=== PATIENT | male | born 1955 | race Caucasian/White ===

== ENCOUNTER → 2023-01-17 | Outpatient (CLI) | payer MEDICARE, OTHER ==
[~2023-01-17] MED LIST: ALBU2.5V10 INH; ALBU8.5H INH; ERGO500029 PO; SODI3NEB INH
== END ==
LOC: M EKG 15:52
PROVIDERS: ATTEND Internal Medicine Hematology
DX: R91.8 Other nonspecific abnormal finding of lung field (principal)

== ENCOUNTER → 2023-01-21 | Outpatient (CLI) | payer OTHER ==
[~2023-01-21] MED LIST changes: -ALBU2.5V10 INH; +ALBU8.5H; -ALBU8.5H INH; +ERGO500029; -ERGO500029 PO; -SODI3NEB INH
== END ==
LOC: M LABSMTC 10:51
PROVIDERS: ATTEND Anesthesiology
DX: Z01.818 Encounter for other preprocedural examination (principal); Z11.52 Encounter for screening for COVID-19

== ENCOUNTER 2023-01-23 07:35 | Inpatient (IN) | payer OTHER ==
[~2023-01-23] VITALS: Ht 167.6 cm; Wt 82.6 kg
[2023-01-23] VITALS (24 sets, daily range): BP systolic 91–138; BP diastolic 50–72
[~2023-01-23 07:35] MED LIST changes: -ALBU8.5H; +ALBU8.5H INH; +CETACAINE SPRAY 5GM As Ordered ONE; +EPINEPHrine 1MG/10ML SYRINGE 1.5IN As Ordered ONE; -ERGO500029; +ERGO500029 PO; +THROMBIN 5,000 UNITS VIAL As Ordered ONE
[2023-01-23] MEDS ORDERED: ALBU2.5V10 INH (08:26)
[2023-01-23] MEDS ORDERED: ROCURONIUM BROMIDE 50MG/5ML VIAL As Ordered ONE ×2 (08:36→11:34)
[2023-01-23] MEDS ORDERED: LIDOCAINE 2% 100MG/5ML SDV (FOR ANES.) As Ordered ONE (08:36)
[2023-01-23] MEDS ORDERED: propofoL 200 MG/20 ML VIAL As Ordered ONE ×2 (08:36→11:35)
[2023-01-23] MEDS ORDERED: SUGAMMADEX SODIUM 500 MG/5 ML VIAL (BRIDION) As Ordered ONE (08:36)
[2023-01-23] MEDS ORDERED: ONDANSETRON 4MG 2ML VIAL As Ordered ONE (08:37)
[2023-01-23] MEDS ORDERED: LR 1,000 ML IV SCH ×2 (08:50→11:05)
[2023-01-23] MEDS ORDERED: fentaNYL 100 MCG/2 ML INJECTION As Ordered ONE ×2 (09:03→11:40)
[2023-01-23] MEDS ORDERED: LIDOCAINE PRES-FREE 2% 10ML AMP INH ONE (09:15)
[2023-01-23] MEDS ORDERED: ALBUTEROL SULFATE 2.5MG/0.5ML INH NEB SOLN INH ONE (09:15)
[2023-01-23] MEDS ORDERED: ACETAMINOPHEN 1000MG 100ML IV BAG As Ordered ONE (10:25)
[2023-01-23] MEDS ORDERED: fentaNYL 100 MCG/2 ML INJECTION IV PRN (11:05)
[2023-01-23] MEDS ORDERED: HYDROMORPHONE HCL 0.5 MG/ 0.5 ML SYRINGE IV PRN (11:05)
[2023-01-23] MEDS ORDERED: ONDANSETRON 4MG 2ML VIAL IV PRN (11:05)
[2023-01-23] MEDS ORDERED: oxyCODONE 5MG TAB PO PRN (11:05)
[2023-01-23] MEDS ORDERED: NALOXONE INJ 0.4MG/1ML VIAL As Ordered ONE (11:13)
[2023-01-23] MEDS ORDERED: PHENYLEPHRINE 10MG/ML 1ML VIAL As Ordered ONE (12:11)
[2023-01-23] MEDS: fentaNYL 100 MCG/2 ML INJECTION IV PRN ×10 (12:12→23:31)
[2023-01-23] MEDS: MIDAZOLAM INJ 2MG/2ML VIAL IV PRN ×10 (12:12→23:30)
[2023-01-23] MEDS ORDERED: MIDAZOLAM INJ 2MG/2ML VIAL As Ordered ONE ×2 (12:13→12:16)
[2023-01-23] MEDS ORDERED: methylPREDNISolone 125MG 2ML VIAL As Ordered ONE (12:14)
[2023-01-23] MEDS ORDERED: methylPREDNISolone 125MG 2ML VIAL IV ONE (12:20)
[2023-01-23] MEDS ORDERED: VANCOMYCIN HCL 1,000 MG, VIAL MATE ADAPTER 1 EACH in NS 250 ML IV SCH (13:05)
[2023-01-23] MEDS: MIDAZOLAM 100MG/100ML-0.9%NACL 100 MG in IV 1 EA IV SCH (13:23)
[2023-01-23] MEDS ORDERED: VANCOMYCIN HCL 750 MG, VIAL MATE ADAPTER 1 EACH in D5W 250 ML IV ONE ×7 (14:00→15:00)
[2023-01-23] MEDS ORDERED: VANCOMYCIN HCL 500 MG in D5W MINI-BAG PLUS 100 ML IV ONE (14:00)
[2023-01-23] MEDS ORDERED: PIPERACILLIN/TAZOBACTAM SOD 3.375 GM in D5W MINI-BAG PLUS 50 ML IV SCH (14:00)
[2023-01-23 14:14] LABS: ABG HCO3 28.9 MEQ/L (22.0-26.0); ABG O2 SATURATION 98.8 % (95.0-99.0); ABG PARTIAL PRESSURE CO2 57.6 mmHg (35.0-45.0); ABG PARTIAL PRESSURE O2 157.7 mmHg (75.0-100.0); ABG STANDARD HCO3 26.3 MEQ/L (22.0-26.0); ABG TOTAL CO2 30.6 MEQ/L (23.0-31.0); ABG pH (ARTERIAL) 7.318 UNITS (7.350-7.450)
[2023-01-23] MEDS: PIPERACILLIN/TAZOBACTAM SOD 4.5 GM in D5W MINI-BAG PLUS 50 ML IV SCH ×2 (14:28→20:03)
[2023-01-23] MEDS: PANTOPRAZOLE 40MG VIAL IV SCH (14:34)
[2023-01-23 14:52] LABS: HEMATOCRIT 30.1 % (42.0-52.0); HEMOGLOBIN 9.2 g/dl (13.5-17.5); MEAN CORPUSCULAR HEMOGLOBIN 28.8 pg (27.0-33.0); MEAN CORPUSCULAR HGB CONC 30.6 g/dl (32.0-36.5); MEAN CORPUSCULAR VOLUME 94.4 fl (80.0-96.0); PLATELET COUNT, AUTOMATED 563 10^3/uL (150-450); RED BLOOD COUNT 3.19 10^6/uL (4.30-6.10); WHITE BLOOD COUNT 15.3 10^3/uL (4.0-10.0)
[2023-01-23 15:10] LABS: ANISOCYTOSIS 1+; LYMPHOCYTES 3 % (16-44); MONOCYTES 3 % (0-5); NEUTROPHILS 94 % (28-66); PLATELET ESTIMATE INCREASED (NORMAL); POLYCHROMASIA 1+
[2023-01-23 15:15] LABS: ALBUMIN 1.6 G/DL (3.2-5.2); ALKALINE PHOSPHATASE 211 U/L (46-116); ALT/SGPT 38 U/L (7.0-40); AST/SGOT 34 U/L (<34); BILIRUBIN,TOTAL 0.8 MG/DL (0.3-1.2); BLOOD UREA NITROGEN 15 MG/DL (9-23); CALCIUM LEVEL 8.3 MG/DL (8.3-10.6); CARBON DIOXIDE LEVEL 29 MMOL/L (20-31); CHLORIDE LEVEL 98 MMOL/L (98-107); GLOMERULAR FILTRATION RATE > 60.0 (>49); GLUCOSE, FASTING 133 MG/DL (74-106); MAGNESIUM LEVEL 1.9 MG/DL (1.8-2.4); POTASSIUM SERUM 4.5 MMOL/L (3.5-5.1); SODIUM LEVEL 135 MMOL/L (136-145)
[2023-01-23] MEDS: IPRATROPIUM 0.5MG/ALBUTEROL 2.5MG INH SOL UD 3ML (DUONEB) NEB SCH ×2 (15:20→19:20)
[2023-01-23] MEDS ORDERED: PIPERACILLIN/TAZOBACTAM SOD 4.5 GM in D5W MINI-BAG PLUS 50 ML IV SCH (16:00)
[2023-01-23] MEDS ORDERED: LIDOCAINE 1% MDV 20ML VIAL As Ordered ONE (16:28)
[2023-01-23] MEDS ORDERED: SODI3NEB INH (17:13)
[2023-01-23] MEDS ORDERED: HOME MED LIST COMPLETE! XX SCH (17:15)
[2023-01-23] MEDS: NS 1,000 ML IV SCH (18:29)
[2023-01-23] MEDS: methylPREDNISolone 125MG 2ML VIAL IV SCH (18:29)
[2023-01-23] MEDS: ACETYLCYSTEINE 20% 4 ML VIAL (200MG/ML) INH SCH (19:20)
[2023-01-23] MEDS: CHLORHEXIDINE GLUCONATE 0.12 % 15ML UDC (PERIDEX ORAL RINSE) MT SCH (22:12)
[2023-01-23] MEDS ORDERED: VANCOMYCIN HCL 750 MG, VIAL MATE ADAPTER 1 EACH in D5W 250 ML IV SCH (23:00)
[2023-01-24] VITALS (34 sets, daily range): BP systolic 92–168; BP diastolic 50–90
[2023-01-24] MEDS: methylPREDNISolone 125MG 2ML VIAL IV SCH ×4 (00:32→17:37)
[2023-01-24] MEDS: PIPERACILLIN/TAZOBACTAM SOD 4.5 GM in D5W MINI-BAG PLUS 50 ML IV SCH ×4 (01:33→20:28)
[2023-01-24] MEDS: ACETYLCYSTEINE 20% 4 ML VIAL (200MG/ML) INH SCH ×2 (02:00→08:51)
[2023-01-24] MEDS: MIDAZOLAM 100MG/100ML-0.9%NACL 100 MG in IV 1 EA IV SCH ×2 (02:37→20:14)
[2023-01-24 04:45] LABS: HEMATOCRIT 27.2 % (42.0-52.0); HEMOGLOBIN 8.3 g/dl (13.5-17.5); MEAN CORPUSCULAR HEMOGLOBIN 28.5 pg (27.0-33.0); MEAN CORPUSCULAR HGB CONC 30.5 g/dl (32.0-36.5); MEAN CORPUSCULAR VOLUME 93.5 fl (80.0-96.0); PLATELET COUNT, AUTOMATED 526 10^3/uL (150-450); RED BLOOD COUNT 2.91 10^6/uL (4.30-6.10); WHITE BLOOD COUNT 12.9 10^3/uL (4.0-10.0)
[2023-01-24] MEDS: MIDAZOLAM INJ 2MG/2ML VIAL IV PRN ×8 (04:46→11:17)
[2023-01-24] MEDS: fentaNYL 100 MCG/2 ML INJECTION IV PRN ×5 (04:52→10:54)
[2023-01-24 05:04] LABS: ALBUMIN 1.4 G/DL (3.2-5.2); ALKALINE PHOSPHATASE 173 U/L (46-116); ALT/SGPT 29 U/L (7.0-40); AST/SGOT 18 U/L (<34); BILIRUBIN,TOTAL 0.6 MG/DL (0.3-1.2); BLOOD UREA NITROGEN 21 MG/DL (9-23); CALCIUM LEVEL 8.2 MG/DL (8.3-10.6); CARBON DIOXIDE LEVEL 30 MMOL/L (20-31); CHLORIDE LEVEL 102 MMOL/L (98-107); CREATININE FOR GFR 0.85 MG/DL (0.70-1.30); GLOMERULAR FILTRATION RATE > 60.0 (>49); GLUCOSE, FASTING 153 MG/DL (74-106); POTASSIUM SERUM 4.6 MMOL/L (3.5-5.1); SODIUM LEVEL 139 MMOL/L (136-145); TOTAL PROTEIN 6.5 G/DL (5.7-8.2)
[2023-01-24] MEDS: NS 1,000 ML IV SCH (05:18)
[2023-01-24 05:52] LABS: ABG BASE EXCESS 3.4 (-2.0-2.0); ABG HCO3 29.5 MEQ/L (22.0-26.0); ABG O2 SATURATION 94.7 % (95.0-99.0); ABG PARTIAL PRESSURE CO2 52.5 mmHg (35.0-45.0); ABG STANDARD HCO3 27.5 MEQ/L (22.0-26.0); ABG TOTAL CO2 31.1 MEQ/L (23.0-31.0); ABG pH (ARTERIAL) 7.367 UNITS (7.350-7.450)
[2023-01-24] MEDS: IPRATROPIUM 0.5MG/ALBUTEROL 2.5MG INH SOL UD 3ML (DUONEB) NEB SCH ×4 (07:20→20:36)
[2023-01-24] MEDS: CHLORHEXIDINE GLUCONATE 0.12 % 15ML UDC (PERIDEX ORAL RINSE) MT SCH ×2 (08:17→22:23)
[2023-01-24 10:19] LABS: INR 1.38; PARTIAL THROMBOPLASTIN TIME 31.6 SECONDS (24.8-34.2); PROTHROMBIN TIME 17.2 SECONDS (12.5-14.5)
[2023-01-24] MEDS: dexmedeTOMidine 200 MCG in IV 1 EA IV SCH ×3 (10:20→20:24)
[2023-01-24 10:21] LABS: VANCOMYCIN LEVEL TROUGH 15.3 UG/ML (10.0-20.0)
[2023-01-24] MEDS ORDERED: LIDOCAINE 1% MDV 20ML VIAL As Ordered ONE ×2 (10:29→10:53)
[2023-01-24] MEDS ORDERED: LIDOCAINE 1% MDV 20ML VIAL SC ONE ×2 (10:37→10:55)
[2023-01-24 10:38] LABS: BLOOD UREA NITROGEN 23 MG/DL (9-23); CALCIUM LEVEL 8.3 MG/DL (8.3-10.6); CARBON DIOXIDE LEVEL 28 MMOL/L (20-31); CHLORIDE LEVEL 104 MMOL/L (98-107); CREATININE FOR GFR 0.86 MG/DL (0.70-1.30); GLOMERULAR FILTRATION RATE > 60.0 (>49); GLUCOSE, FASTING 173 MG/DL (74-106); POTASSIUM SERUM 4.2 MMOL/L (3.5-5.1); SODIUM LEVEL 140 MMOL/L (136-145)
[2023-01-24] MEDS ORDERED: VANCOMYCIN HCL 500 MG in D5W MINI-BAG PLUS 100 ML IV SCH ×4 (11:00→11:05)
[2023-01-24] MEDS ORDERED: FENTANYL DRIP LOCK BOX KEY 1 EACH XX PRN (11:45)
[2023-01-24 11:57] LABS: LDH LACTATE DEHYDROGENASE 137 U/L (120-246)
[2023-01-24] MEDS ORDERED: VANCOMYCIN HCL 500 MG in D5W MINI-BAG PLUS 100 ML IV ONE (12:00)
[2023-01-24] MEDS: fentaNYL CITRATE/NaCl 1,000 MCG in IV 1 EA IV SCH (12:19)
[2023-01-24 12:25] LABS: APPEARANCE, BODY FLUID TURBID (CLEAR); PLEURAL FL COLOR GREEN (COLORLESS); SOURCE, BODY FLUID PLEURAL
[2023-01-24 12:31] LABS: SOURCE, BODY FLUID GLUCOSE PLEURAL
[2023-01-24] MEDS: THIAMINE 100 MG TAB PO SCH (12:31)
[2023-01-24] MEDS: ENOXAPARIN 40MG/0.4ML SYRINGE (J1650 PER 10MG) SC SCH (12:31)
[2023-01-24] MEDS: FOLIC ACID 1MG TAB PO SCH (12:31)
[2023-01-24] MEDS: MULTIVITAMINS/MINERALS THERAP 1 TAB PO SCH (12:31)
[2023-01-24 12:32] LABS: SOURCE, BODY FLUID TRIG PLEURAL; TRIGLYCERIDE, BODY FLUID 25 MG/DL (NOT ESTABLISHED)
[2023-01-24 12:33] LABS: AMYLASE, BODY FLUID < 20 U/L (NOT ESTABLISHED); CHOLESTEROL, BODY FLUID < 25 MG/DL (NOT ESTABLISHED); SOURCE, BODY FLUID AMYLASE PLEURAL; SOURCE, BODY FLUID CHOL PLEURAL
[2023-01-24 12:43] LABS: LDH, BODY FLUID > 700 U/L (NOT ESTABLISHED); SOURCE, BODY FLUID LDH PLEURAL
[2023-01-24 14:23] LABS: SOURCE, BODY FLUID pH PLEURAL
[2023-01-24] MEDS: PANTOPRAZOLE 40MG VIAL IV SCH (14:42)
[2023-01-24 15:59] LABS: BLOOD UREA NITROGEN 22 MG/DL (9-23); CALCIUM LEVEL 8.5 MG/DL (8.3-10.6); CARBON DIOXIDE LEVEL 31 MMOL/L (20-31); CHLORIDE LEVEL 106 MMOL/L (98-107); CREATININE FOR GFR 0.76 MG/DL (0.70-1.30); GLOMERULAR FILTRATION RATE > 60.0 (>49); GLUCOSE, FASTING 170 MG/DL (74-106); POTASSIUM SERUM 4.2 MMOL/L (3.5-5.1); SODIUM LEVEL 141 MMOL/L (136-145)
[2023-01-24 23:02] LABS: BLOOD UREA NITROGEN 22 MG/DL (9-23); CALCIUM LEVEL 8.3 MG/DL (8.3-10.6); CARBON DIOXIDE LEVEL 32 MMOL/L (20-31); CHLORIDE LEVEL 107 MMOL/L (98-107); CREATININE FOR GFR 0.75 MG/DL (0.70-1.30); GLOMERULAR FILTRATION RATE > 60.0 (>49); GLUCOSE, FASTING 167 MG/DL (74-106); POTASSIUM SERUM 4.1 MMOL/L (3.5-5.1); SODIUM LEVEL 142 MMOL/L (136-145)
[2023-01-25] VITALS (26 sets, daily range): BP systolic 118–177; BP diastolic 60–86
[2023-01-25] MEDS: VANCOMYCIN HCL 1,000 MG, VIAL MATE ADAPTER 1 EACH in D5W 250 ML IV SCH ×3 (00:21→23:45)
[2023-01-25] MEDS: methylPREDNISolone 125MG 2ML VIAL IV SCH ×2 (00:22→06:28)
[2023-01-25] MEDS ORDERED: NS 1,000 ML IV SCH (01:05)
[2023-01-25 01:12] LABS: SOURCE, BODY FLUID ALBUMIN PLEURAL
[2023-01-25 01:19] LABS: SOURCE, BODY FLUID TOT PROTEIN PLEURAL; TOTAL PROTEIN, BODY FLUID 2.4 G/DL (NOT ESTABLISHED)
[2023-01-25] MEDS: PIPERACILLIN/TAZOBACTAM SOD 4.5 GM in D5W MINI-BAG PLUS 50 ML IV SCH ×4 (01:43→20:07)
[2023-01-25] MEDS: dexmedeTOMidine 200 MCG in IV 1 EA IV SCH ×7 (01:44→23:45)
[2023-01-25 04:10] LABS: HEMATOCRIT 26.3 % (42.0-52.0); MEAN CORPUSCULAR HEMOGLOBIN 28.8 pg (27.0-33.0); MEAN CORPUSCULAR HGB CONC 30.4 g/dl (32.0-36.5); MEAN CORPUSCULAR VOLUME 94.6 fl (80.0-96.0); PLATELET COUNT, AUTOMATED 488 10^3/uL (150-450); RED BLOOD COUNT 2.78 10^6/uL (4.30-6.10); WHITE BLOOD COUNT 12.5 10^3/uL (4.0-10.0)
[2023-01-25 04:26] LABS: BLOOD UREA NITROGEN 23 MG/DL (9-23); CALCIUM LEVEL 8.5 MG/DL (8.3-10.6); CARBON DIOXIDE LEVEL 32 MMOL/L (20-31); CHLORIDE LEVEL 107 MMOL/L (98-107); CREATININE FOR GFR 0.89 MG/DL (0.70-1.30); GLOMERULAR FILTRATION RATE > 60.0 (>49); GLUCOSE, FASTING 139 MG/DL (74-106); POTASSIUM SERUM 4.5 MMOL/L (3.5-5.1); SODIUM LEVEL 145 MMOL/L (136-145)
[2023-01-25] MEDS: fentaNYL CITRATE/NaCl 1,000 MCG in IV 1 EA IV SCH ×2 (04:40→21:21)
[2023-01-25] MEDS: fentaNYL 100 MCG/2 ML INJECTION IV PRN (05:23)
[2023-01-25 05:46] LABS: ABG BASE EXCESS 5.7 (-2.0-2.0); ABG O2 SATURATION 97.5 % (95.0-99.0); ABG PARTIAL PRESSURE CO2 49.3 mmHg (35.0-45.0); ABG PARTIAL PRESSURE O2 104.4 mmHg (75.0-100.0); ABG STANDARD HCO3 29.7 MEQ/L (22.0-26.0); ABG TOTAL CO2 32.6 MEQ/L (23.0-31.0); ABG pH (ARTERIAL) 7.417 UNITS (7.350-7.450)
[2023-01-25] MEDS: FOLIC ACID 1MG TAB PO SCH (08:08)
[2023-01-25] MEDS: ENOXAPARIN 40MG/0.4ML SYRINGE (J1650 PER 10MG) SC SCH (08:08)
[2023-01-25] MEDS: MULTIVITAMINS/MINERALS THERAP 1 TAB PO SCH (08:09)
[2023-01-25] MEDS: THIAMINE 100 MG TAB PO SCH (08:09)
[2023-01-25] MEDS: IPRATROPIUM 0.5MG/ALBUTEROL 2.5MG INH SOL UD 3ML (DUONEB) NEB SCH ×4 (08:14→19:26)
[2023-01-25] MEDS: CHLORHEXIDINE GLUCONATE 0.12 % 15ML UDC (PERIDEX ORAL RINSE) MT SCH ×2 (09:03→20:06)
[2023-01-25] MEDS ORDERED: MIDAZOLAM INJ 2MG/2ML VIAL As Ordered ONE ×2 (09:05→09:06)
[2023-01-25] MEDS ORDERED: MIDAZOLAM INJ 2MG/2ML VIAL IV ONE (09:30)
[2023-01-25 11:27] LABS: BLOOD UREA NITROGEN 25 MG/DL (9-23); CALCIUM LEVEL 8.4 MG/DL (8.3-10.6); CARBON DIOXIDE LEVEL 31 MMOL/L (20-31); CHLORIDE LEVEL 107 MMOL/L (98-107); CREATININE FOR GFR 0.78 MG/DL (0.70-1.30); GLOMERULAR FILTRATION RATE > 60.0 (>49); GLUCOSE, FASTING 133 MG/DL (74-106); POTASSIUM SERUM 4.4 MMOL/L (3.5-5.1); SODIUM LEVEL 142 MMOL/L (136-145)
[2023-01-25] MEDS: MIDAZOLAM 100MG/100ML-0.9%NACL 100 MG in IV 1 EA IV SCH (11:42)
[2023-01-25] MEDS: PANTOPRAZOLE 40MG VIAL IV SCH (14:07)
[2023-01-25] MEDS: methylPREDNISolone 40MG 1ML VIAL IV SCH (17:05)
[2023-01-25 17:12] LABS: BLOOD UREA NITROGEN 26 MG/DL (9-23); CALCIUM LEVEL 8.5 MG/DL (8.3-10.6); CARBON DIOXIDE LEVEL 31 MMOL/L (20-31); CHLORIDE LEVEL 108 MMOL/L (98-107); CREATININE FOR GFR 0.78 MG/DL (0.70-1.30); GLOMERULAR FILTRATION RATE > 60.0 (>49); GLUCOSE, FASTING 135 MG/DL (74-106); POTASSIUM SERUM 4.3 MMOL/L (3.5-5.1); SODIUM LEVEL 145 MMOL/L (136-145)
[2023-01-25 22:43] LABS: BLOOD UREA NITROGEN 26 MG/DL (9-23); CALCIUM LEVEL 8.2 MG/DL (8.3-10.6); CARBON DIOXIDE LEVEL 32 MMOL/L (20-31); CHLORIDE LEVEL 107 MMOL/L (98-107); CREATININE FOR GFR 0.72 MG/DL (0.70-1.30); GLOMERULAR FILTRATION RATE > 60.0 (>49); GLUCOSE, FASTING 157 MG/DL (74-106); POTASSIUM SERUM 3.9 MMOL/L (3.5-5.1); SODIUM LEVEL 145 MMOL/L (136-145)
[2023-01-25] MEDS: MIDAZOLAM INJ 2MG/2ML VIAL IV PRN (22:53)
[2023-01-26] VITALS (41 sets, daily range): BP systolic 153–195; BP diastolic 71–96
[2023-01-26] MEDS: PIPERACILLIN/TAZOBACTAM SOD 4.5 GM in D5W MINI-BAG PLUS 50 ML IV SCH ×4 (01:18→20:25)
[2023-01-26] MEDS: dexmedeTOMidine 200 MCG in IV 1 EA IV SCH ×8 (02:58→23:30)
[2023-01-26] MEDS: MIDAZOLAM INJ 2MG/2ML VIAL IV PRN ×4 (03:40→23:56)
[2023-01-26] MEDS: fentaNYL 100 MCG/2 ML INJECTION IV PRN (03:41)
[2023-01-26] MEDS: MIDAZOLAM 100MG/100ML-0.9%NACL 100 MG in IV 1 EA IV SCH ×2 (04:11→21:02)
[2023-01-26 05:36] LABS: HEMOGLOBIN 8.5 g/dl (13.5-17.5); MEAN CORPUSCULAR HEMOGLOBIN 28.5 pg (27.0-33.0); MEAN CORPUSCULAR HGB CONC 30.4 g/dl (32.0-36.5); PLATELET COUNT, AUTOMATED 466 10^3/uL (150-450); RED BLOOD COUNT 2.98 10^6/uL (4.30-6.10); WHITE BLOOD COUNT 12.3 10^3/uL (4.0-10.0)
[2023-01-26 05:51] LABS: BLOOD UREA NITROGEN 27 MG/DL (9-23); CALCIUM LEVEL 8.3 MG/DL (8.3-10.6); CARBON DIOXIDE LEVEL 33 MMOL/L (20-31); CHLORIDE LEVEL 105 MMOL/L (98-107); CREATININE FOR GFR 0.72 MG/DL (0.70-1.30); GLOMERULAR FILTRATION RATE > 60.0 (>49); GLUCOSE, FASTING 126 MG/DL (74-106); POTASSIUM SERUM 4.4 MMOL/L (3.5-5.1); SODIUM LEVEL 142 MMOL/L (136-145)
[2023-01-26] MEDS: methylPREDNISolone 40MG 1ML VIAL IV SCH ×2 (05:57→17:04)
[2023-01-26 06:14] LABS: ABG HCO3 32.8 MEQ/L (22.0-26.0); ABG O2 SATURATION 98.1 % (95.0-99.0); ABG PARTIAL PRESSURE CO2 47.4 mmHg (35.0-45.0); ABG STANDARD HCO3 31.8 MEQ/L (22.0-26.0); ABG TOTAL CO2 34.3 MEQ/L (23.0-31.0); ABG pH (ARTERIAL) 7.458 UNITS (7.350-7.450)
[2023-01-26] MEDS: IPRATROPIUM 0.5MG/ALBUTEROL 2.5MG INH SOL UD 3ML (DUONEB) NEB SCH ×4 (07:54→19:33)
[2023-01-26] MEDS: CHLORHEXIDINE GLUCONATE 0.12 % 15ML UDC (PERIDEX ORAL RINSE) MT SCH ×2 (08:19→20:25)
[2023-01-26] MEDS: MULTIVITAMINS/MINERALS THERAP 1 TAB PO SCH (08:19)
[2023-01-26] MEDS: FOLIC ACID 1MG TAB PO SCH (08:19)
[2023-01-26] MEDS: ENOXAPARIN 40MG/0.4ML SYRINGE (J1650 PER 10MG) SC SCH (08:20)
[2023-01-26] MEDS ORDERED: PILL CUTTER 1 EACH XX PRN (08:20)
[2023-01-26] MEDS ORDERED: METOPROLOL SUCC *XL* 25MG TAB (TopROL *XL*) PO SCH (09:00)
[2023-01-26] MEDS: THIAMINE 100 MG TAB PO SCH (09:47)
[2023-01-26] MEDS ORDERED: VECURONIUM BROMIDE 10MG VIAL IV STA (09:49)
[2023-01-26] MEDS ORDERED: METOPROLOL 5 MG/5 ML VIAL IV STA (10:04)
[2023-01-26] MEDS ORDERED: ALTEPLASE 2MG/2ML VIAL XX ONE (11:00)
[2023-01-26] MEDS: METOCLOPRAMIDE 5 MG TAB PO SCH ×2 (11:43→20:25)
[2023-01-26] MEDS: VANCOMYCIN HCL 1,000 MG, VIAL MATE ADAPTER 1 EACH in D5W 250 ML IV SCH ×2 (11:43→23:31)
[2023-01-26] MEDS: METOPROLOL TART 25 MG TABLET PO SCH ×2 (12:18→20:25)
[2023-01-26] MEDS: PANTOPRAZOLE 40MG VIAL IV SCH (13:22)
[2023-01-26] MEDS: fentaNYL CITRATE/NaCl 1,000 MCG in IV 1 EA IV SCH (14:07)
[2023-01-26] MEDS: hydrALAZINE 20MG/ML 1ML VIAL IV SCH ×2 (14:09→22:03)
[2023-01-27] VITALS (47 sets, daily range): BP systolic 124–186; BP diastolic 58–84
[2023-01-27] MEDS: PIPERACILLIN/TAZOBACTAM SOD 4.5 GM in D5W MINI-BAG PLUS 50 ML IV SCH ×4 (01:38→20:11)
[2023-01-27] MEDS: MIDAZOLAM INJ 2MG/2ML VIAL IV PRN ×3 (02:18→20:16)
[2023-01-27] MEDS: dexmedeTOMidine 200 MCG in IV 1 EA IV SCH ×8 (02:28→23:30)
[2023-01-27] MEDS: fentaNYL CITRATE/NaCl 1,000 MCG in IV 1 EA IV SCH ×2 (03:54→16:29)
[2023-01-27 05:01] LABS: HEMATOCRIT 28.9 % (42.0-52.0); MEAN CORPUSCULAR HEMOGLOBIN 28.7 pg (27.0-33.0); MEAN CORPUSCULAR HGB CONC 31.1 g/dl (32.0-36.5); PLATELET COUNT, AUTOMATED 421 10^3/uL (150-450); RED BLOOD COUNT 3.14 10^6/uL (4.30-6.10); WHITE BLOOD COUNT 8.7 10^3/uL (4.0-10.0)
[2023-01-27 05:25] LABS: BLOOD UREA NITROGEN 21 MG/DL (9-23); CALCIUM LEVEL 8.3 MG/DL (8.3-10.6); CARBON DIOXIDE LEVEL 33 MMOL/L (20-31); CHLORIDE LEVEL 100 MMOL/L (98-107); CREATININE FOR GFR 0.59 MG/DL (0.70-1.30); GLOMERULAR FILTRATION RATE > 60.0 (>49); GLUCOSE, FASTING 137 MG/DL (74-106); SODIUM LEVEL 135 MMOL/L (136-145)
[2023-01-27] MEDS: methylPREDNISolone 40MG 1ML VIAL IV SCH ×2 (06:05→17:10)
[2023-01-27] MEDS: hydrALAZINE 20MG/ML 1ML VIAL IV SCH ×3 (06:05→22:07)
[2023-01-27 06:10] LABS: ABG BASE EXCESS 9.9 (-2.0-2.0); ABG HCO3 34.7 MEQ/L (22.0-26.0); ABG O2 SATURATION 97.4 % (95.0-99.0); ABG PARTIAL PRESSURE CO2 48.6 mmHg (35.0-45.0); ABG PARTIAL PRESSURE O2 99.3 mmHg (75.0-100.0); ABG STANDARD HCO3 33.6 MEQ/L (22.0-26.0); ABG TOTAL CO2 36.2 MEQ/L (23.0-31.0); ABG pH (ARTERIAL) 7.472 UNITS (7.350-7.450)
[2023-01-27] MEDS: IPRATROPIUM 0.5MG/ALBUTEROL 2.5MG INH SOL UD 3ML (DUONEB) NEB SCH ×4 (07:45→20:04)
[2023-01-27] MEDS: FOLIC ACID 1MG TAB PO SCH (08:51)
[2023-01-27] MEDS: MULTIVITAMINS/MINERALS THERAP 1 TAB PO SCH (08:51)
[2023-01-27] MEDS: METOCLOPRAMIDE 5 MG TAB PO SCH ×2 (08:52→20:11)
[2023-01-27] MEDS: METOPROLOL TART 25 MG TABLET PO SCH ×2 (08:52→20:00)
[2023-01-27] MEDS: CHLORHEXIDINE GLUCONATE 0.12 % 15ML UDC (PERIDEX ORAL RINSE) MT SCH ×2 (08:53→20:11)
[2023-01-27] MEDS: ENOXAPARIN 40MG/0.4ML SYRINGE (J1650 PER 10MG) SC SCH (08:53)
[2023-01-27] MEDS: THIAMINE 100 MG TAB PO SCH (08:53)
[2023-01-27] MEDS: PANTOPRAZOLE 40MG VIAL IV SCH (13:37)
[2023-01-27] MEDS: MIDAZOLAM 100MG/100ML-0.9%NACL 100 MG in IV 1 EA IV SCH (13:53)
[2023-01-28] VITALS (29 sets, daily range): BP systolic 109–193; BP diastolic 56–135; O2SAT 91
[2023-01-28] MEDS: PIPERACILLIN/TAZOBACTAM SOD 4.5 GM in D5W MINI-BAG PLUS 50 ML IV SCH ×4 (01:57→20:00)
[2023-01-28] MEDS: dexmedeTOMidine 200 MCG in IV 1 EA IV SCH ×2 (02:42→06:02)
[2023-01-28] MEDS: MIDAZOLAM INJ 2MG/2ML VIAL IV PRN ×2 (02:46→03:12)
[2023-01-28] MEDS: MIDAZOLAM 100MG/100ML-0.9%NACL 100 MG in IV 1 EA IV SCH (03:13)
[2023-01-28] MEDS: fentaNYL CITRATE/NaCl 1,000 MCG in IV 1 EA IV SCH (05:03)
[2023-01-28 05:08] LABS: HEMATOCRIT 30.6 % (42.0-52.0); HEMOGLOBIN 9.7 g/dl (13.5-17.5); MEAN CORPUSCULAR HGB CONC 31.7 g/dl (32.0-36.5); MEAN CORPUSCULAR VOLUME 91.6 fl (80.0-96.0); PLATELET COUNT, AUTOMATED 420 10^3/uL (150-450); RED BLOOD COUNT 3.34 10^6/uL (4.30-6.10); WHITE BLOOD COUNT 7.7 10^3/uL (4.0-10.0)
[2023-01-28 05:36] LABS: BLOOD UREA NITROGEN 23 MG/DL (9-23); CALCIUM LEVEL 7.9 MG/DL (8.3-10.6); CARBON DIOXIDE LEVEL 33 MMOL/L (20-31); CHLORIDE LEVEL 101 MMOL/L (98-107); CREATININE FOR GFR 0.56 MG/DL (0.70-1.30); GLOMERULAR FILTRATION RATE > 60.0 (>49); GLUCOSE, FASTING 146 MG/DL (74-106); POTASSIUM SERUM 4.3 MMOL/L (3.5-5.1); SODIUM LEVEL 138 MMOL/L (136-145)
[2023-01-28] MEDS: hydrALAZINE 20MG/ML 1ML VIAL IV SCH ×3 (06:00→22:46)
[2023-01-28] MEDS: methylPREDNISolone 40MG 1ML VIAL IV SCH (06:02)
[2023-01-28 06:07] LABS: ABG BASE EXCESS 6.9 (-2.0-2.0); ABG HCO3 31.2 MEQ/L (22.0-26.0); ABG O2 SATURATION 95.6 % (95.0-99.0); ABG PARTIAL PRESSURE CO2 43.4 mmHg (35.0-45.0); ABG PARTIAL PRESSURE O2 81.1 mmHg (75.0-100.0); ABG STANDARD HCO3 30.7 MEQ/L (22.0-26.0); ABG TOTAL CO2 32.5 MEQ/L (23.0-31.0); ABG pH (ARTERIAL) 7.474 UNITS (7.350-7.450)
[2023-01-28] MEDS: IPRATROPIUM 0.5MG/ALBUTEROL 2.5MG INH SOL UD 3ML (DUONEB) NEB SCH ×4 (07:11→20:55)
[2023-01-28] MEDS: MULTIVITAMINS/MINERALS THERAP 1 TAB PO SCH (08:40)
[2023-01-28] MEDS: FOLIC ACID 1MG TAB PO SCH (08:40)
[2023-01-28] MEDS: CHLORHEXIDINE GLUCONATE 0.12 % 15ML UDC (PERIDEX ORAL RINSE) MT SCH (08:40)
[2023-01-28] MEDS: METOCLOPRAMIDE 5 MG TAB PO SCH (08:41)
[2023-01-28] MEDS: THIAMINE 100 MG TAB PO SCH (08:41)
[2023-01-28] MEDS: ENOXAPARIN 40MG/0.4ML SYRINGE (J1650 PER 10MG) SC SCH (08:43)
[2023-01-28] MEDS ORDERED: BISACODYL 10MG SUPP PR PRN (09:15)
[2023-01-28] MEDS: METOPROLOL TART 25 MG TABLET PO SCH ×2 (09:50→21:25)
[2023-01-28] MEDS: PANTOPRAZOLE 40MG VIAL IV SCH (13:41)
[2023-01-28] MEDS ORDERED: LORazepam 2 MG/ML 1ML VIAL IV PRN (15:40)
[2023-01-28] MEDS ORDERED: LORazepam 2 MG/ML 1ML VIAL IM PRN (16:35)
[2023-01-29] VITALS (14 sets, daily range): BP systolic 115–183; BP diastolic 52–102; O2SAT 91
[2023-01-29] MEDS: PIPERACILLIN/TAZOBACTAM SOD 4.5 GM in D5W MINI-BAG PLUS 50 ML IV SCH ×4 (02:13→20:38)
[2023-01-29 05:02] LABS: HEMATOCRIT 35.4 % (42.0-52.0); HEMOGLOBIN 11.3 g/dl (13.5-17.5); MEAN CORPUSCULAR HGB CONC 31.9 g/dl (32.0-36.5); MEAN CORPUSCULAR VOLUME 90.8 fl (80.0-96.0); PLATELET COUNT, AUTOMATED 497 10^3/uL (150-450); WHITE BLOOD COUNT 13.6 10^3/uL (4.0-10.0)
[2023-01-29 05:39] LABS: BLOOD UREA NITROGEN 19 MG/DL (9-23); CALCIUM LEVEL 7.8 MG/DL (8.3-10.6); CARBON DIOXIDE LEVEL 30 MMOL/L (20-31); CHLORIDE LEVEL 103 MMOL/L (98-107); CREATININE FOR GFR 0.55 MG/DL (0.70-1.30); GLOMERULAR FILTRATION RATE > 60.0 (>49); GLUCOSE, FASTING 75 MG/DL (74-106); POTASSIUM SERUM 3.3 MMOL/L (3.5-5.1); SODIUM LEVEL 136 MMOL/L (136-145)
[2023-01-29] MEDS ORDERED: methylPREDNISolone 40MG 1ML VIAL IV SCH (06:00)
[2023-01-29 06:11] LABS: ABG BASE EXCESS 6.9 (-2.0-2.0); ABG HCO3 30.7 MEQ/L (22.0-26.0); ABG O2 SATURATION 93.1 % (95.0-99.0); ABG PARTIAL PRESSURE CO2 40.5 mmHg (35.0-45.0); ABG PARTIAL PRESSURE O2 63.3 mmHg (75.0-100.0); ABG STANDARD HCO3 30.6 MEQ/L (22.0-26.0); ABG TOTAL CO2 31.9 MEQ/L (23.0-31.0); ABG pH (ARTERIAL) 7.497 UNITS (7.350-7.450)
[2023-01-29] MEDS: hydrALAZINE 20MG/ML 1ML VIAL IV SCH (06:29)
[2023-01-29] MEDS: IPRATROPIUM 0.5MG/ALBUTEROL 2.5MG INH SOL UD 3ML (DUONEB) NEB SCH ×4 (07:38→20:27)
[2023-01-29] MEDS ORDERED: POTASSIUM CHLORIDE 10MEQ SR TABLET PO ONE ×2 (08:15→12:30)
[2023-01-29] MEDS: MULTIVITAMINS/MINERALS THERAP 1 TAB PO SCH (08:26)
[2023-01-29] MEDS: METOPROLOL TART 25 MG TABLET PO SCH ×2 (08:27→20:38)
[2023-01-29] MEDS: THIAMINE 100 MG TAB PO SCH (08:28)
[2023-01-29] MEDS: FOLIC ACID 1MG TAB PO SCH (08:28)
[2023-01-29] MEDS: ENOXAPARIN 40MG/0.4ML SYRINGE (J1650 PER 10MG) SC SCH (08:28)
[2023-01-29] MEDS ORDERED: FUROSEMIDE 20MG/2ML VIAL IV ONE (12:25)
[2023-01-29] MEDS: predniSONE 10MG TAB PO SCH (12:38)
[2023-01-30] VITALS (12 sets, daily range): BP systolic 130–166; BP diastolic 64–80; O2SAT 93–95
[2023-01-30] MEDS: PIPERACILLIN/TAZOBACTAM SOD 4.5 GM in D5W MINI-BAG PLUS 50 ML IV SCH ×4 (02:13→20:31)
[2023-01-30 05:10] LABS: HEMOGLOBIN 10.4 g/dl (13.5-17.5); MEAN CORPUSCULAR HEMOGLOBIN 28.7 pg (27.0-33.0); MEAN CORPUSCULAR HGB CONC 31.5 g/dl (32.0-36.5); MEAN CORPUSCULAR VOLUME 90.9 fl (80.0-96.0); PLATELET COUNT, AUTOMATED 452 10^3/uL (150-450); RED BLOOD COUNT 3.63 10^6/uL (4.30-6.10); WHITE BLOOD COUNT 8.3 10^3/uL (4.0-10.0)
[2023-01-30 05:35] LABS: MAGNESIUM LEVEL 1.8 MG/DL (1.8-2.4); PHOSPHORUS LEVEL 2.8 MG/DL (2.4-5.1)
[2023-01-30 05:37] LABS: BLOOD UREA NITROGEN 22 MG/DL (9-23); CARBON DIOXIDE LEVEL 32 MMOL/L (20-31); CHLORIDE LEVEL 101 MMOL/L (98-107); CREATININE FOR GFR 0.55 MG/DL (0.70-1.30); GLOMERULAR FILTRATION RATE > 60.0 (>49); GLUCOSE, FASTING 91 MG/DL (74-106); POTASSIUM SERUM 3.6 MMOL/L (3.5-5.1); SODIUM LEVEL 138 MMOL/L (136-145)
[2023-01-30 05:52] LABS: HEPATITIS B SURFACE ANTIGEN NEGATIVE (NEGATIVE)
[2023-01-30 06:04] LABS: HIV 1&2 SCREEN CENTAUR NEGATIVE (NEGATIVE)
[2023-01-30 06:12] LABS: HEPATITIS C VIRUS ABY INDEX 0.2 INDEX (<0.8)
[2023-01-30] MEDS ORDERED: MAGNESIUM OXIDE 400MG TAB (MAG-OX) PO ONE (07:00)
[2023-01-30] MEDS ORDERED: POTASSIUM CHLORIDE 10MEQ SR TABLET PO ONE (07:00)
[2023-01-30] MEDS: IPRATROPIUM 0.5MG/ALBUTEROL 2.5MG INH SOL UD 3ML (DUONEB) NEB SCH ×4 (07:49→20:46)
[2023-01-30] MEDS: FOLIC ACID 1MG TAB PO SCH (08:10)
[2023-01-30] MEDS: METOPROLOL TART 25 MG TABLET PO SCH ×2 (08:10→20:30)
[2023-01-30] MEDS: MULTIVITAMINS/MINERALS THERAP 1 TAB PO SCH (08:10)
[2023-01-30] MEDS: predniSONE 10MG TAB PO SCH (08:10)
[2023-01-30] MEDS: THIAMINE 100 MG TAB PO SCH (08:11)
[2023-01-30] MEDS: VALSARTAN 80 MG TAB (DIOVAN) PO SCH (08:11)
[2023-01-30] MEDS: ENOXAPARIN 40MG/0.4ML SYRINGE (J1650 PER 10MG) SC SCH (08:12)
[2023-01-31] VITALS (31 sets, daily range): BP systolic 136–179; BP diastolic 65–77; O2SAT 85–97
[2023-01-31] MEDS: PIPERACILLIN/TAZOBACTAM SOD 4.5 GM in D5W MINI-BAG PLUS 50 ML IV SCH ×4 (02:04→20:07)
[2023-01-31 06:10] LABS: HEMATOCRIT 31.4 % (42.0-52.0); MEAN CORPUSCULAR HEMOGLOBIN 29.3 pg (27.0-33.0); MEAN CORPUSCULAR HGB CONC 31.8 g/dl (32.0-36.5); MEAN CORPUSCULAR VOLUME 92.1 fl (80.0-96.0); PLATELET COUNT, AUTOMATED 456 10^3/uL (150-450); RED BLOOD COUNT 3.41 10^6/uL (4.30-6.10); WHITE BLOOD COUNT 10.1 10^3/uL (4.0-10.0)
[2023-01-31 06:33] LABS: BLOOD UREA NITROGEN 18 MG/DL (9-23); CALCIUM LEVEL 8.1 MG/DL (8.3-10.6); CARBON DIOXIDE LEVEL 29 MMOL/L (20-31); CHLORIDE LEVEL 104 MMOL/L (98-107); CREATININE FOR GFR 0.63 MG/DL (0.70-1.30); GLOMERULAR FILTRATION RATE > 60.0 (>49); GLUCOSE, FASTING 72 MG/DL (74-106); POTASSIUM SERUM 3.8 MMOL/L (3.5-5.1); SODIUM LEVEL 139 MMOL/L (136-145)
[2023-01-31] MEDS: IPRATROPIUM 0.5MG/ALBUTEROL 2.5MG INH SOL UD 3ML (DUONEB) NEB SCH ×4 (07:11→19:44)
[2023-01-31] MEDS: ENOXAPARIN 40MG/0.4ML SYRINGE (J1650 PER 10MG) SC SCH (08:46)
[2023-01-31] MEDS: MULTIVITAMINS/MINERALS THERAP 1 TAB PO SCH (08:47)
[2023-01-31] MEDS: METOPROLOL TART 25 MG TABLET PO SCH ×2 (08:47→20:08)
[2023-01-31] MEDS: VALSARTAN 80 MG TAB (DIOVAN) PO SCH (08:47)
[2023-01-31] MEDS: THIAMINE 100 MG TAB PO SCH (08:47)
[2023-01-31] MEDS: predniSONE 10MG TAB PO SCH (08:47)
[2023-01-31] MEDS: FOLIC ACID 1MG TAB PO SCH (08:48)
[2023-01-31] MEDS ORDERED: FUROSEMIDE 20MG/2ML VIAL IV ONE (08:50)
[2023-01-31] MEDS: amLODIPine 5 MG TAB PO SCH (08:56)
[2023-02-01] VITALS (14 sets, daily range): BP systolic 117–146; BP diastolic 57–67; O2SAT 91–97
[2023-02-01] MEDS: PIPERACILLIN/TAZOBACTAM SOD 4.5 GM in D5W MINI-BAG PLUS 50 ML IV SCH ×3 (02:07→13:39)
[2023-02-01 05:40] LABS: BASO % 0.1 % (0.0-1.0); EOS # 0.1 10^3/uL (0.0-0.5); EOS % 0.6 % (0.0-3.0); HEMATOCRIT 32.2 % (42.0-52.0); HEMOGLOBIN 10.3 g/dl (13.5-17.5); LYMPH # 1.8 10^3/uL (1.5-5.0); LYMPH % 17.6 % (24.0-44.0); MEAN CORPUSCULAR HEMOGLOBIN 29.2 pg (27.0-33.0); MEAN CORPUSCULAR VOLUME 91.2 fl (80.0-96.0); MONO # 0.8 10^3/uL (0.0-0.8); MONO % 7.3 % (2.0-8.0); NEUTROPHILS # 7.6 10^3/uL (1.5-8.5); PLATELET COUNT, AUTOMATED 455 10^3/uL (150-450); RED BLOOD COUNT 3.53 10^6/uL (4.30-6.10); WHITE BLOOD COUNT 10.4 10^3/uL (4.0-10.0)
[2023-02-01 06:14] LABS: BLOOD UREA NITROGEN 17 MG/DL (9-23); CALCIUM LEVEL 7.8 MG/DL (8.3-10.6); CARBON DIOXIDE LEVEL 30 MMOL/L (20-31); CHLORIDE LEVEL 102 MMOL/L (98-107); CREATININE FOR GFR 0.67 MG/DL (0.70-1.30); GLOMERULAR FILTRATION RATE > 60.0 (>49); GLUCOSE, FASTING 82 MG/DL (74-106); MAGNESIUM LEVEL 1.8 MG/DL (1.8-2.4); PHOSPHORUS LEVEL 3.1 MG/DL (2.4-5.1); POTASSIUM SERUM 3.8 MMOL/L (3.5-5.1); SODIUM LEVEL 137 MMOL/L (136-145)
[2023-02-01] MEDS: IPRATROPIUM 0.5MG/ALBUTEROL 2.5MG INH SOL UD 3ML (DUONEB) NEB SCH ×4 (07:19→19:47)
[2023-02-01] MEDS: predniSONE 10MG TAB PO SCH (08:22)
[2023-02-01] MEDS: ENOXAPARIN 40MG/0.4ML SYRINGE (J1650 PER 10MG) SC SCH (08:22)
[2023-02-01] MEDS: VALSARTAN 80 MG TAB (DIOVAN) PO SCH (08:22)
[2023-02-01] MEDS: FOLIC ACID 1MG TAB PO SCH (08:23)
[2023-02-01] MEDS: METOPROLOL TART 25 MG TABLET PO SCH ×2 (08:23→21:20)
[2023-02-01] MEDS: MULTIVITAMINS/MINERALS THERAP 1 TAB PO SCH (08:23)
[2023-02-01] MEDS: THIAMINE 100 MG TAB PO SCH (08:23)
[2023-02-01] MEDS: amLODIPine 5 MG TAB PO SCH (08:23)
[2023-02-01] MEDS ORDERED: FUROSEMIDE 20MG/2ML VIAL IV ONE (08:45)
[2023-02-01] MEDS: AUGMENTIN 875 MG TAB PO SCH (21:20)
[2023-02-02 03:24] VITALS: BP 138/60
[2023-02-02 05:43] LABS: BASO % 0.2 % (0.0-1.0); EOS # 0.1 10^3/uL (0.0-0.5); EOS % 0.8 % (0.0-3.0); HEMATOCRIT 30.8 % (42.0-52.0); HEMOGLOBIN 9.8 g/dl (13.5-17.5); LYMPH # 1.9 10^3/uL (1.5-5.0); LYMPH % 21.3 % (24.0-44.0); MEAN CORPUSCULAR HEMOGLOBIN 29.3 pg (27.0-33.0); MEAN CORPUSCULAR HGB CONC 31.8 g/dl (32.0-36.5); MEAN CORPUSCULAR VOLUME 91.9 fl (80.0-96.0); MONO # 0.7 10^3/uL (0.0-0.8); NEUTROPHILS # 6.1 10^3/uL (1.5-8.5); NEUTROPHILS % 68.1 % (36.0-66.0); PLATELET COUNT, AUTOMATED 462 10^3/uL (150-450); RED BLOOD COUNT 3.35 10^6/uL (4.30-6.10)
[2023-02-02 06:09] LABS: BLOOD UREA NITROGEN 16 MG/DL (9-23); CALCIUM LEVEL 8.2 MG/DL (8.3-10.6); CARBON DIOXIDE LEVEL 30 MMOL/L (20-31); CHLORIDE LEVEL 100 MMOL/L (98-107); CREATININE FOR GFR 0.56 MG/DL (0.70-1.30); GLOMERULAR FILTRATION RATE > 60.0 (>49); GLUCOSE, FASTING 78 MG/DL (74-106); MAGNESIUM LEVEL 1.7 MG/DL (1.8-2.4); PHOSPHORUS LEVEL 2.8 MG/DL (2.4-5.1); POTASSIUM SERUM 3.5 MMOL/L (3.5-5.1); SODIUM LEVEL 136 MMOL/L (136-145)
[2023-02-02 07:32] VITALS: BP 152/65
[2023-02-02] MEDS: ENOXAPARIN 40MG/0.4ML SYRINGE (J1650 PER 10MG) SC SCH (08:05)
[2023-02-02] MEDS: predniSONE 10MG TAB PO SCH (08:05)
[2023-02-02] MEDS: VALSARTAN 80 MG TAB (DIOVAN) PO SCH (08:05)
[2023-02-02 08:06] VITALS: BP 152/65
[2023-02-02] MEDS: amLODIPine 5 MG TAB PO SCH (08:06)
[2023-02-02] MEDS: FOLIC ACID 1MG TAB PO SCH (08:06)
[2023-02-02] MEDS: THIAMINE 100 MG TAB PO SCH (08:06)
[2023-02-02] MEDS: METOPROLOL TART 25 MG TABLET PO SCH (08:06)
[2023-02-02] MEDS: AUGMENTIN 875 MG TAB PO SCH (08:06)
[2023-02-02] MEDS: MULTIVITAMINS/MINERALS THERAP 1 TAB PO SCH (08:07)
[2023-02-02] MEDS: IPRATROPIUM 0.5MG/ALBUTEROL 2.5MG INH SOL UD 3ML (DUONEB) NEB SCH ×2 (08:26→11:19)
[2023-02-02] MEDS ORDERED: SODIUM PHOSPHATE INJ 20 MMOL in D5W 250 ML IV ONE (09:00)
[2023-02-02] MEDS ORDERED: MAGNESIUM OXIDE 400MG TAB (MAG-OX) PO ONE (09:10)
[2023-02-02] MEDS ORDERED: METO1TAB87 PO (09:18)
[2023-02-02] MEDS ORDERED: THIA100TA PO (09:18)
[2023-02-02] MEDS ORDERED: DIOV80TA3 PO (09:18)
[2023-02-02] MEDS ORDERED: FOLI1TAB11 PO (09:18)
[2023-02-02] MEDS ORDERED: SYMB80INH INH (09:18)
[2023-02-02] MEDS ORDERED: AMOX875T2 PO (09:18)
[2023-02-02] MEDS ORDERED: ACID1TAB PO (09:18)
[2023-02-02] MEDS ORDERED: VITMTA PO (09:18)
[2023-02-02] MEDS ORDERED: PRED10TA2 PO (09:21)
[2023-02-02] MEDS ORDERED: AMLO1TAB24 PO (09:29)
[2024-01-24] MEDS ORDERED: LIDOCAINE 1% MDV 20ML VIAL SC ONE (16:00)
== END 2023-02-02 12:54 | disposition home or self-care (01) | DRG 207 ==
LOC: M SDC 07:35 → M ICU 07:36 → M PCU 01-30 14:55
PROVIDERS: ADMIT Internal Medicine; ATTEND Internal Medicine
PROC: 0B9D8ZX Drainage of Right Middle Lung Lobe, Via Natural or Artificial Opening Endoscopic, Diagnostic (ICD-10-PCS; 2023-01-23)
PROC: 0BJ08ZZ Inspection of Tracheobronchial Tree, Via Natural or Artificial Opening Endoscopic (ICD-10-PCS; 2023-01-23)
PROC: 0BB38ZX Excision of Right Main Bronchus, Via Natural or Artificial Opening Endoscopic, Diagnostic (ICD-10-PCS; 2023-01-23)
PROC: 0B938ZZ Drainage of Right Main Bronchus, Via Natural or Artificial Opening Endoscopic (ICD-10-PCS; 2023-01-23)
PROC: 5A1955Z Respiratory Ventilation, Greater than 96 Consecutive Hours (ICD-10-PCS; principal; 2023-01-23 09:45)
PROC: 0W9930Z Drainage of Right Pleural Cavity with Drainage Device, Percutaneous Approach (ICD-10-PCS; 2023-01-24)
PROC: 0B9C8ZZ Drainage of Right Upper Lung Lobe, Via Natural or Artificial Opening Endoscopic (ICD-10-PCS; 2023-01-25)
PROC: 0B958ZZ Drainage of Right Middle Lobe Bronchus, Via Natural or Artificial Opening Endoscopic (ICD-10-PCS; 2023-01-25)
PROC: 0B9F8ZZ Drainage of Right Lower Lung Lobe, Via Natural or Artificial Opening Endoscopic (ICD-10-PCS; 2023-01-25)
PROC: 3E0L3GC Introduction of Other Therapeutic Substance into Pleural Cavity, Percutaneous Approach (ICD-10-PCS; 2023-01-26)
DX: J86.0 Pyothorax with fistula (principal); J96.01 Acute respiratory failure with hypoxia; J18.9 Pneumonia, unspecified organism; J98.11 Atelectasis; J44.1 Chronic obstructive pulmonary disease with (acute) exacerbation; J44.0 Chronic obstructive pulmonary disease with (acute) lower respiratory infection; J90 Pleural effusion, not elsewhere classified; L02.413 Cutaneous abscess of right upper limb; F17.200 Nicotine dependence, unspecified, uncomplicated; L89.029 Pressure ulcer of left elbow, unspecified stage; J98.09 Other diseases of bronchus, not elsewhere classified; E88.09 Other disorders of plasma-protein metabolism, not elsewhere classified; D64.9 Anemia, unspecified; D75.838 Other thrombocytosis; B95.61 Methicillin susceptible Staphylococcus aureus infection as the cause of diseases classified elsewhere; B96.89 Other specified bacterial agents as the cause of diseases classified elsewhere; I10 Essential (primary) hypertension; B95.5 Unspecified streptococcus as the cause of diseases classified elsewhere; E87.6 Hypokalemia; Z90.49 Acquired absence of other specified parts of digestive tract; K59.00 Constipation, unspecified; Z11.52 Encounter for screening for COVID-19; Z91.013 Allergy to seafood

== ENCOUNTER → 2023-02-11 | Outpatient (CLI) | payer OTHER ==
[~2023-02-11] MED LIST changes: +ACID1TAB PO; +ALBU2.5V10 INH; +AMLO1TAB24 PO; +AMOX875T2 PO; -CETACAINE SPRAY 5GM As Ordered ONE; +DIOV80TA3 PO; -EPINEPHrine 1MG/10ML SYRINGE 1.5IN As Ordered ONE; +FOLI1TAB11 PO; +METO1TAB87 PO; +PRED10TA2 PO; +SODI3NEB INH; +SYMB80INH INH; +THIA100TA PO; -THROMBIN 5,000 UNITS VIAL As Ordered ONE; +VITMTA PO
== END ==
LOC: M PLARAD 11:08
PROVIDERS: ATTEND Internal Medicine Pulmonary Disease
DX: R91.8 Other nonspecific abnormal finding of lung field (principal)
CPT/HCPCS: 78815; A9552

== ENCOUNTER 2023-05-21 07:49 | Day surgery (SDC) | payer OTHER ==
[~2023-05-21] VITALS: Ht 167.6 cm; Wt 83.0 kg
[~2023-05-21 07:49] MED LIST changes: +CEFUROXIME 1MG/0.1ML INTRACAMERAL INJ As Ordered ONE; +CYCLOPENTOLATE 1% OPHTH SOLN 2ML BTL OD SCH; +LIDOCAINE 1% SDV 5ML VIAL As Ordered ONE; +OFLOXACIN 0.3 % (OCUFLOX) OPTH SOL 5ML OD SCH; +PHENYLEPHRINE 2.5% OPHTH SOL 2ML OD SCH; +PROPARACAINE 0.5% OPHTH SOL 15ML OD ONE; +TROPICAMIDE 1% OPHTH SOLN 15ML OD SCH
[2023-05-21] MEDS ORDERED: BSS IRR 500ML/OMIDRIA 4ML IRR BAG (OR ONLY) As Ordered ONE (08:50)
[2023-05-21] MEDS ORDERED: fentaNYL 100 MCG/2 ML INJECTION As Ordered ONE (10:03)
[2023-05-21] MEDS ORDERED: MIDAZOLAM INJ 2MG/2ML VIAL As Ordered ONE (10:04)
[2023-05-21 10:30] VITALS: BP 124/59; TEMP 97.2; O2SAT 94
== END 2023-05-21 10:48 | disposition home or self-care (01) ==
LOC: M SDC 07:49
PROVIDERS: ATTEND Ophthalmology
DX: H25.11 Age-related nuclear cataract, right eye (principal); I10 Essential (primary) hypertension; J44.9 Chronic obstructive pulmonary disease, unspecified; R05.9 Cough, unspecified; Z79.899 Other long term (current) drug therapy; Z91.013 Allergy to seafood
CPT/HCPCS: 66984; J0697; J1097; J2250; J3010; V2632

== ENCOUNTER 2024-02-03 02:43 | Emergency (ER) | payer MEDICAID, OTHER, SELFPAY ==
[~2024-02-03] VITALS: Ht 167.6 cm; Wt 85.5 kg
[~2024-02-03 02:43] MED LIST changes: -CEFUROXIME 1MG/0.1ML INTRACAMERAL INJ As Ordered ONE; -CYCLOPENTOLATE 1% OPHTH SOLN 2ML BTL OD SCH; -LIDOCAINE 1% SDV 5ML VIAL As Ordered ONE; -OFLOXACIN 0.3 % (OCUFLOX) OPTH SOL 5ML OD SCH; -PHENYLEPHRINE 2.5% OPHTH SOL 2ML OD SCH; -PROPARACAINE 0.5% OPHTH SOL 15ML OD ONE; -TROPICAMIDE 1% OPHTH SOLN 15ML OD SCH
[2024-02-03] MEDS ORDERED: AZIT-12 PO (02:55)
[2024-02-03] MEDS ORDERED: PRED20TA PO (02:55)
[2024-02-03] MEDS ORDERED: VALS1TAB66 PO (04:48)
[2024-02-03] MEDS ORDERED: VARE1TAB2 PO (04:48)
[2024-02-03] MEDS ORDERED: HOME MED LIST COMPLETE! XX SCH (06:00)
[2024-02-03] MEDS: methylPREDNISolone 125MG 2ML VIAL IM ONE (06:14)
[2024-02-03] MEDS: diazePAM 10MG/2ML SYRINGE IM ONE (06:14)
[2024-02-03] MEDS: VALSARTAN 80 MG TAB (DIOVAN) PO ONE (07:43)
[2024-02-03] MEDS ORDERED: LIDO5DIS41 TD (08:05)
[2024-02-03] MEDS ORDERED: NAPR-837 PO (08:05)
[2024-02-03 08:18] VITALS: TEMP 97.9
[2024-02-03 09:24] LABS: BASO % 0.1 % (0.0-1.0); EOS % 0.1 % (0.0-3.0); HEMATOCRIT 45.1 % (42.0-52.0); HEMOGLOBIN 15.7 g/dl (13.5-17.5); LYMPH # 0.6 10^3/uL (1.5-5.0); LYMPH % 6.1 % (24.0-44.0); MEAN CORPUSCULAR HGB CONC 34.8 g/dl (32.0-36.5); MONO # 0.4 10^3/uL (0.0-0.8); MONO % 3.7 % (2.0-8.0); NEUTROPHILS # 9.2 10^3/uL (1.5-8.5); NEUTROPHILS % 88.8 % (36.0-66.0); PLATELET COUNT, AUTOMATED 414 10^3/uL (150-450); RED BLOOD COUNT 5.07 10^6/uL (4.30-6.10); WHITE BLOOD COUNT 10.4 10^3/uL (4.0-10.0)
[2024-02-03 09:29] LABS: ERYTHROCYTE SEDIMENTATION RATE 36 mm/hr (0-20)
[2024-02-03 09:50] LABS: BLOOD UREA NITROGEN 22 MG/DL (9-23); CALCIUM LEVEL 9.1 MG/DL (8.3-10.6); CARBON DIOXIDE LEVEL 28 MMOL/L (20-31); CHLORIDE LEVEL 98 MMOL/L (98-107); CREATININE FOR GFR 0.65 MG/DL (0.70-1.30); GLOMERULAR FILTRATION RATE > 60.0 (>42); GLUCOSE, FASTING 115 MG/DL (74-106); POTASSIUM SERUM 4.8 MMOL/L (3.5-5.1); SODIUM LEVEL 133 MMOL/L (136-145)
[2024-02-03] MEDS: KETOROLAC 30 MG/ML 1ML VIAL IV ONE (09:55)
[2024-02-03 12:07] VITALS: BP 207/95
[2024-02-03] MEDS: METOPROLOL TART 50 MG TAB PO ONE (12:07)
[2024-02-03] MEDS: ONDANSETRON 4MG 2ML VIAL IV ONE (12:18)
[2024-02-03] MEDS: MORPHINE 4 MG/ML 1ML VIAL IV PRN (12:21)
[2024-02-03 14:00] VITALS: BP 164/77
[2024-02-03 14:31] VITALS: O2SAT 91
== END 2024-02-03 14:50 | disposition short-term general hospital (02) ==
LOC: M ED 02:43
DX: M51.36 Other intervertebral disc degeneration, lumbar region (principal); I10 Essential (primary) hypertension; J44.9 Chronic obstructive pulmonary disease, unspecified; F17.210 Nicotine dependence, cigarettes, uncomplicated; Z91.013 Allergy to seafood; Z79.51 Long term (current) use of inhaled steroids; Z79.2 Long term (current) use of antibiotics; Z79.52 Long term (current) use of systemic steroids; Z79.899 Other long term (current) drug therapy
CPT/HCPCS: 72131; 72148; 80048; 85025; 85652; 86140; 87635; 96372; 96374; 96375; 99285; J1885; J2405; J2919; J3360

== ENCOUNTER → 2024-08-10 | Outpatient (CLI) | payer MEDICARE ==
[~2024-08-10] MED LIST changes: +AZIT-12 PO; +LIDO5DIS41 TD; +NAPR-837 PO; +PRED20TA PO; +VALS1TAB66 PO; +VARE1TAB2 PO
== END ==
LOC: M PAIN 13:00
PROVIDERS: ATTEND Nurse Practitioner Family
DX: M79.18 Myalgia, other site (principal); M54.2 Cervicalgia; I10 Essential (primary) hypertension; M17.0 Bilateral primary osteoarthritis of knee; J44.9 Chronic obstructive pulmonary disease, unspecified; M48.061 Spinal stenosis, lumbar region without neurogenic claudication; M48.02 Spinal stenosis, cervical region; M54.16 Radiculopathy, lumbar region; F17.210 Nicotine dependence, cigarettes, uncomplicated; Z79.891 Long term (current) use of opiate analgesic; Z79.899 Other long term (current) drug therapy; Z88.7 Allergy status to serum and vaccine; Z91.013 Allergy to seafood

== ENCOUNTER → 2024-08-13 | Outpatient (CLI) | payer MEDICARE ==
[~2024-08-13] MED LIST changes: +TRIAMCINOLONE ACETONIDE SUSP 40MG/ML 1ML VIAL As Ordered ONE; +oxyCODONE 5MG TAB As Ordered ONE
== END ==
LOC: M PAIN 14:00
PROVIDERS: ATTEND Anesthesiology
DX: M79.18 Myalgia, other site (principal); G89.29 Other chronic pain; M17.0 Bilateral primary osteoarthritis of knee; I10 Essential (primary) hypertension; M48.061 Spinal stenosis, lumbar region without neurogenic claudication; M48.02 Spinal stenosis, cervical region; F17.210 Nicotine dependence, cigarettes, uncomplicated; Z79.891 Long term (current) use of opiate analgesic; Z79.899 Other long term (current) drug therapy
CPT/HCPCS: 20552; J0665; J3301

== ENCOUNTER → 2024-10-22 | Outpatient (CLI) | payer MEDICARE ==
[~2024-10-22] MED LIST changes: -TRIAMCINOLONE ACETONIDE SUSP 40MG/ML 1ML VIAL As Ordered ONE; -oxyCODONE 5MG TAB As Ordered ONE
== END ==
LOC: M PAIN 10:45
PROVIDERS: ATTEND Nurse Practitioner Family
DX: M79.18 Myalgia, other site (principal); G89.29 Other chronic pain; M54.2 Cervicalgia; I10 Essential (primary) hypertension; M17.0 Bilateral primary osteoarthritis of knee; J44.9 Chronic obstructive pulmonary disease, unspecified; M48.061 Spinal stenosis, lumbar region without neurogenic claudication; M48.02 Spinal stenosis, cervical region; Z96.653 Presence of artificial knee joint, bilateral; F17.210 Nicotine dependence, cigarettes, uncomplicated; Z79.891 Long term (current) use of opiate analgesic; Z79.899 Other long term (current) drug therapy; Z88.7 Allergy status to serum and vaccine; Z91.013 Allergy to seafood

== ENCOUNTER → 2024-11-19 | Outpatient (CLI) | payer MEDICARE ==
[~2024-11-19] MED LIST changes: +TRIAMCINOLONE ACETONIDE SUSP 40MG/ML 1ML VIAL As Ordered ONE; +oxyCODONE 5MG TAB As Ordered ONE
== END ==
LOC: M PAIN 14:00
PROVIDERS: ATTEND Anesthesiology
DX: M79.18 Myalgia, other site (principal); G89.29 Other chronic pain; I10 Essential (primary) hypertension; M17.0 Bilateral primary osteoarthritis of knee; J44.9 Chronic obstructive pulmonary disease, unspecified; F17.210 Nicotine dependence, cigarettes, uncomplicated; Z79.891 Long term (current) use of opiate analgesic; Z79.899 Other long term (current) drug therapy; Z88.7 Allergy status to serum and vaccine; Z91.013 Allergy to seafood
CPT/HCPCS: 20552; J0665; J3301

== ENCOUNTER → 2024-12-07 | Outpatient (CLI) | payer MEDICARE ==
[~2024-12-07] MED LIST changes: -TRIAMCINOLONE ACETONIDE SUSP 40MG/ML 1ML VIAL As Ordered ONE; -oxyCODONE 5MG TAB As Ordered ONE
== END ==
LOC: M PAIN 13:00
PROVIDERS: ATTEND Nurse Practitioner Family
DX: M79.18 Myalgia, other site (principal); G89.29 Other chronic pain; I10 Essential (primary) hypertension; F17.210 Nicotine dependence, cigarettes, uncomplicated; M17.0 Bilateral primary osteoarthritis of knee; J44.9 Chronic obstructive pulmonary disease, unspecified; M48.061 Spinal stenosis, lumbar region without neurogenic claudication; M48.02 Spinal stenosis, cervical region; Z88.7 Allergy status to serum and vaccine; Z91.013 Allergy to seafood; Z79.891 Long term (current) use of opiate analgesic; Z79.899 Other long term (current) drug therapy

== ENCOUNTER → 2025-05-13 | Outpatient (CLI) | payer MEDICARE, MEDICAID ==
[~2025-05-13] MED LIST changes: +LIDO1ADH93 TD; -LIDO5DIS41 TD
== END ==
LOC: M PLARAD 10:11
PROVIDERS: ATTEND Neurological Surgery
DX: M48.062 Spinal stenosis, lumbar region with neurogenic claudication (principal)

== ENCOUNTER → 2025-06-07 | Outpatient (REF) | payer MEDICARE, MEDICAID | LOC: M LAB REF 16:50 | PROVIDERS: ATTEND Internal Medicine Pulmonary Disease | DX: J44.9 Chronic obstructive pulmonary disease, unspecified (principal) ==